=== PATIENT | female | born 1950 | race African-American/Black ===

== ENCOUNTER 2017-03-18 03:39 | Inpatient (IN) | payer OTHER ==
[2017-03-18] VITALS (8 sets, daily range): BP systolic 83–169; BP diastolic 54–93
[~2017-03-18] VITALS: Ht 165.1 cm; Wt 65.8 kg
[2017-03-18] MEDS ORDERED: AMLODIPINE BESY10 MG ORAL (04:28)
[2017-03-18] MEDS ORDERED: ASPIR 8181 MG ORAL (04:29)
[2017-03-18] MEDS ORDERED: TENORMIN50 MG ORAL (04:29)
[2017-03-18] MEDS ORDERED: BACLOFEN10 MG ORAL (04:29)
[2017-03-18] MEDS ORDERED: FOLIC ACID1 MG ORAL (04:30)
[2017-03-18] MEDS ORDERED: COLACE100 MG ORAL (04:30)
[2017-03-18] MEDS ORDERED: CRANBERRY450 M3 PO (04:30)
[2017-03-18] MEDS ORDERED: GABAPENTIN600 MG ORAL (04:33)
[2017-03-18] MEDS ORDERED: HUMULIN 70100 UNIT/2 SUBQ (04:33)
[2017-03-18] MEDS ORDERED: METFORMIN HCL500 M1 ORAL (04:33)
[2017-03-18] MEDS ORDERED: MIRALAX17 G2 ORAL (04:35)
[2017-03-18] MEDS ORDERED: NORCO 5-325 TA1 EACH ORAL (04:35)
[2017-03-18] MEDS ORDERED: MONTELUKAST SOD10 MG ORAL (04:35)
[2017-03-18 04:40] LABS: BASOPHILS % (AUTO) 0.8 % (0.0-2.0); EOSINOPHILS % (AUTO) 0.3 % (0.0-3.0); LYMPHOCYTES % (AUTO) 22.3 % (20.0-45.0); MEAN CORPUSCULAR HEMOGLOBIN 26.6 PG (27.0-31.0); MEAN CORPUSCULAR HGB CONC 31.2 G/DL (32.0-36.0); MEAN CORPUSCULAR VOLUME 85 FL (80-99); MEAN PLATELET VOLUME 8.9 FL (6.5-10.1); NEUTROPHILS % (AUTO) 73.7 % (45.0-75.0); PLATELET COUNT 287 K/UL (150-450); RED BLOOD COUNT 4.88 M/UL (4.20-5.40); RED CELL DISTRIBUTION WIDTH 13.4 % (11.6-14.8); WHITE BLOOD COUNT 12.1 K/UL (4.8-10.8)
[2017-03-18] MEDS ORDERED: Cefepime HCl 1 GM in D5W 55 ML IVPB ONE (04:45)
--- NOTE | 2017-03-18 04:49 | Emergency Room Report ---
History of Present Illness General Chief Complaint: Fever Source: Patient, Medical Record, EMS, PMD Present Illness HPI Is a 66-year-old female with multiple medical problem. 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 She presents with chief complaint of fever and cough. Onset yesterday. Is given Tylenol without reduction of her fever. Patient felt weak. Cough is nonproductive in nature. No nausea no vomiting. No chest pain. No other complaint. Allergies: Coded Allergies: PENICILLINS (Verified Allergy, Unknown, 03/18/17) Patient History Past Medical History: see triage record, old chart reviewed, HTN, CVA/TIA Past Surgical History: other Pertinent Family History: none Social History: Denies: smoking Now: No Immunizations: other Reviewed Nursing Documentation: PMH: Agreed, PSxH: Agreed Nursing Documentation-PMH Hx Hypertension: Yes Hx Diabetes: Yes Hx Cerebrovascular Accident: Yes - LEFT SIDE DEFICIT,left hemiparesis, hemiplegia Review of Systems Constitutional: Reports: fever Eye: Denies: blurred vision, eye pain ENT: Denies: ear pain, nose congestion, throat swelling Respiratory: Reports: cough, Denies: shortness of breath Cardiovascular: Denies: chest pain, palpitations Gastrointestinal: Denies: abdominal pain, diarrhea, nausea, vomiting Musculoskeletal: Denies: back pain, joint pain Skin: Denies: rash Neurological: Denies: headache, numbness Endocrine: Denies: increased thirst, increased urine Hematologic/Lymphatic: Denies: easy bruising All Other Systems: negative except mentioned in HPI Physical Exam Vital Signs Date Time Temp Pulse Resp B/P Pulse Ox O2 Delivery O2 Flow Rate FiO2 03/18/17 03:43 101.5 100 20 169/93 91 Nasal Cannula 2.0 vitals with fever and hypoxia Sp02 EP Interpretation: abnormal General Appearance: alert, mild distress, Chronically Ill Head: normocephalic, atraumatic Eyes: bilateral eye EOMI, bilateral eye PERRL ENT: hearing grossly normal, normal pharynx Neck: full range of motion, supple, no meningismus Respiratory: chest non-tender, rhonchi Cardiovascular #1: regular rate, rhythm, no murmur Gastrointestinal: normal bowel sounds, non tender, no mass, no organomegaly, no bruit, non-distended Musculoskeletal: back normal Neurologic: alert Psychiatric: mood/affect normal Skin: warm/dry Procedures Critical Care Time Critical Care Time Critical care is mandated in this patient who presented with sepsis from pneumonia. Patient require my urgent intervention to attenuate the risks of metabolic collapse which may lead to cardiovascular collapse and . Critical care time is 35 minutes excluding any reportable procedure. Critical care time included evaluation, multiple reevaluation, looking at old charts, interpreting laboratory and diagnostic data, discussing case with patient and family and consultants, and charting. Medical Decision Making Diagnostic Impression: Primary Impression: Sepsis Qualified Codes: A41.9 - Sepsis, unspecified organism Additional Impressions: Pneumonia Qualified Codes: J18.1 - Lobar pneumonia, unspecified organism UTI (urinary tract infection) Qualified Codes: N30.00 - Acute cystitis without hematuria ER Course Patient presents with fever and rest or distress. She has pneumonia and sepsis. She is more alert after IV fluid. Repeat lactic acid done. There is get any urine. Patient will be made to Dr. Woodson based on insurance. I informed primary care Dr. admission status. Lab Results Impression labs unremarkable EKG Diagnostic Results Rate: normal Rhythm: NSR ST Segments: no acute changes Rhythm Strip Diag. Results EP Interpretation: yes Rate: 100 Rhythm: NSR, no PVC's, no ectopy Chest X-Ray Diagnostic Results EP Interpretation: Yes Findings: no effusion, no pneumothorax, other - Left lower lobe infiltrate Number of Views: 1 Last Vital Signs Date Time Temp Pulse Resp B/P Pulse Ox O2 Delivery O2 Flow Rate FiO2 03/18/17 03:43 101.5 100 20 169/93 91 Nasal Cannula 2.0 Status: improved Disposition: ADMITTED INPATIENT Condition: Serious Referrals: Joe Reid MD (PCP) KARY ALMAZAN M.D. March 18, 2017 04:49
[2017-03-18] MEDS ORDERED: Cefepime 1gm vial ONE (04:51)
[2017-03-18 04:56] LABS: ALANINE AMINOTRANSFERASE 21 U/L (3-33); ALBUMIN/GLOBULIN RATIO 0.9 (1.0-2.7); ANION GAP 15 (5-15); ASPARTATE AMINO TRANSFERASE 43 U/L (5-40); CALCIUM 10.1 mg/dL (8.6-10.2); CARBON DIOXIDE 28 mEQ/L (20-30); CHLORIDE 97 mEQ/L (98-107); CREATININE 0.7 mg/dL (0.5-0.9); GLOMERULAR FILTRATION RATE > 60 mL/min (>60); HEMOLYSIS 15; SODIUM 140 mEQ/L (135-145)
[2017-03-18 04:56] LABS: APPEARANCE,URINE CLOUDY; KETONES,URINE NEGATIVE (NEGATIVE); LEUKOCYTE ESTERASE ,URINE 1+ (NEGATIVE); NITRITE,URINE NEGATIVE (NEGATIVE); PH,URINE 7 (4.5-8.0); PROTEIN,URINE NEGATIVE (NEGATIVE); UROBILINOGEN,URINE 1 MG/DL (0.0-1.0)
[2017-03-18 04:58] LABS: REFLEX LACTIC ACID YES OR NO YES; TROPONIN I < 0.30 ng/mL (<=0.30)
[2017-03-18 05:03] LABS: BACTERIA,URINE MANY /HPF; RBC,URINE 0-2 /HPF (0 - 2); SQUAMOUS EPITHELIAL CELL,UR MODERATE /LPF (NONE/OCC)
[2017-03-18 05:07] LABS: CKMB < 1.5 ng/mL (< 3.8)
[2017-03-18 05:17] LABS: BILIRUBIN,DIRECT 0.4 mg/dL (0.1-0.3)
[2017-03-18] MEDS ORDERED: Morphine Sulfate 2mg/ml Inj IVP ONE (06:30)
[2017-03-18] MEDS ORDERED: DuoNeb 0.5-3(2.5)mg/3ml neb HHN PRN (07:30)
[2017-03-18] MEDS ORDERED: Mylanta II UD 30ml ORAL PRN (07:30)
[2017-03-18] MEDS ORDERED: Promethazine/Codeine 5ml UD ORAL PRN (07:30)
[2017-03-18] MEDS ORDERED: Nitroglycerin Subl 0.4mg tab (Bottle Of 25) SL PRN (07:30)
[2017-03-18] MEDS ORDERED: Miralax 17gm pkt ORAL PRN (07:30)
[2017-03-18] MEDS: Docusate 100mg cap ORAL SCH ×2 (09:27→17:59)
[2017-03-18] MEDS: Heparin 5000 units/ml inj SUBQ SCH ×2 (09:31→21:11)
--- NOTE | 2017-03-18 09:43 | Diagnostic Imaging Report ---
Indication: Chest pain Technique: XRAY CHEST 1 V Comparison: None Findings: Cardiomediastinal silhouette is within normal limits. There is mild central pulmonary vascular congestion. There is no obvious consolidation or pleural effusion. Degenerative changes of the spine are seen. There is osteopenia. Degenerative changes are also seen of the right shoulder. Impression: Mild pulmonary vascular congestion. No obvious consolidation. Clinical correlation/followup recommended.
--- NOTE | 2017-03-18 14:21 | History and Physical ---
History of Present Illness General Date patient seen: March 18, 2017 Reason for Hospitalization: Fever Present Illness HPI 66-year-old female with hx of CVA, HTN, DM, alf resident DAVID with CC of fever and cough since yesterday. Her cough is nonproductive in nature. No nausea no vomiting. No chest pain. No other complaint. There is no obvious sign of sepsis, except for fever. Allergies: Coded Allergies: PENICILLINS (Verified Allergy, Unknown, 03/18/17) Medication History Scheduled Amlodipine Besylate* (Amlodipine Besylate*), 10 MG ORAL DAILY, (Reported) Aspirin* (Aspir 81*), 81 MG ORAL DAILY, (Reported) Atenolol* (Tenormin*), 50 MG ORAL BID, (Reported) Baclofen* (Baclofen*), 10 MG ORAL THREE TIMES A DAY, (Reported) Cranberry Fruit Concentrate (Cranberry), 450 MG PO DAILY, (Reported) Docusate Sodium* (Colace*), 100 MG ORAL TWICE A DAY, (Reported) Folic Acid* (Folic Acid*), 1 MG ORAL DAILY, (Reported) Gabapentin* (Gabapentin*), 600 MG ORAL EVERY 6 HOURS, (Reported) Metformin Hcl* (Metformin Hcl*), 500 MG ORAL BEFORE BREAKFAST, (Reported) Montelukast Sodium* (Montelukast Sodium*), 10 MG ORAL BEDTIME, (Reported) Polyethylene Glycol 3350* (Miralax*), 17 GM ORAL DAILY, (Reported) Scheduled PRN Hydrocodone Bit/Acetaminophen 5-325* ([place] 5-325*), 1 TAB ORAL Q12HR PRN for For Pain, (Reported) Miscellaneous Medications Hum Insulin Nph/Reg Insulin Hm (Humulin 70-30 Vial), 0 SUBQ, (Reported) Patient History Healthcare decision maker Resuscitation status Full Code Advanced Directive on File Past Medical/Surgical History Past Medical/Surgical History: (1) Family history of CVA (2) Diabetes mellitus (3) senior care resident Review of Systems All Other Systems: negative except mentioned in HPI Physical Exam General Appearance: WD/WN Lines, tubes and drains: peripheral HEENT: normocephalic, atraumatic Neck: non-tender, normal alignment Respiratory/Chest: chest wall non-tender, lungs clear Cardiovascular/Chest: normal peripheral pulses, normal rate Abdomen: normal bowel sounds, non tender Genitourinary/Rectal: normal genital exam, heme negative stool Extremities: normal range of motion Last 24 Hour Vital Signs Date Time Temp Pulse Resp B/P Pulse Ox O2 Delivery O2 Flow Rate FiO2 03/18/17 12:00 98.1 98 17 139/78 98 03/18/17 12:00 100 03/18/17 09:27 102 139/82 03/18/17 09:27 102 139/82 03/18/17 08:00 99.3 102 20 139/82 98 Nasal Cannula 2.0 03/18/17 08:00 104 03/18/17 07:58 98.3 03/18/17 07:55 101 18 116/68 100 Nasal Cannula 2.0 03/18/17 07:16 110 17 Nasal Cannula 2.0 03/18/17 07:13 98.3 110 17 130/64 100 Nasal Cannula 2.0 03/18/17 06:00 102.3 107 19 144/66 100 Nasal Cannula 2.0 03/18/17 03:50 101.5 115 20 169/93 98 Nasal Cannula 2.0 03/18/17 03:43 101.5 100 20 169/93 91 Nasal Cannula 2.0 Intake and Output 03/17/17 03/18/17 19:00 07:00 Intake Total 2200 ml Output Total 900 ml Balance 1300 ml Intake IV Total 2200 ml Output Urine Total 900 ml Laboratory Tests Test 03/18/17 04:00 03/18/17 04:30 03/18/17 04:45 03/18/17 04:50 Lactic Acid Level 1.90 mmol/L (0.66-2.22) 2.10 mmol/L (0.66-2.22) White Blood Count 12.1 K/UL (4.8-10.8) H Red Blood Count 4.88 M/UL (4.20-5.40) Hemoglobin 13.0 G/DL (12.0-16.0) Hematocrit 41.6 % (37.0-47.0) Mean Corpuscular Volume 85 FL (80-99) Mean Corpuscular Hemoglobin 26.6 PG (27.0-31.0) L Mean Corpuscular Hemoglobin Concent 31.2 G/DL (32.0-36.0) L Red Cell Distribution Width 13.4 % (11.6-14.8) Platelet Count 287 K/UL (150-450) Mean Platelet Volume 8.9 FL (6.5-10.1) Neutrophils (%) (Auto) 73.7 % (45.0-75.0) Lymphocytes (%) (Auto) 22.3 % (20.0-45.0) Monocytes (%) (Auto) 3.0 % (1.0-10.0) Eosinophils (%) (Auto) 0.3 % (0.0-3.0) Basophils (%) (Auto) 0.8 % (0.0-2.0) Sodium Level 140 mEQ/L (135-145) Potassium Level 5.0 mEQ/L (3.4-4.9) H Chloride Level 97 mEQ/L (98-107) L Carbon Dioxide Level 28 mEQ/L (20-30) Anion Gap 15 (5-15) Blood Urea Nitrogen 8 mg/dL (7-23) Creatinine 0.7 mg/dL (0.5-0.9) Estimat Glomerular Filtration Rate > 60 mL/min (>60) Glucose Level 130 mg/dL (74-106) H Calcium Level 10.1 mg/dL (8.6-10.2) Total Bilirubin 1.1 mg/dL (0.0-1.2) Direct Bilirubin 0.4 mg/dL (0.1-0.3) H Aspartate Amino Transf (AST/SGOT) 43 U/L (5-40) H Alanine Aminotransferase (ALT/SGPT) 21 U/L (3-33) Alkaline Phosphatase 121 U/L (35-104) H Total Creatine Kinase 46 U/L (26-140) Creatine Kinase MB < 1.5 ng/mL (< 3.8) Creatine Kinase MB Relative Index 3.2 Troponin I < 0.30 ng/mL (<=0.30) Total Protein 9.0 g/dL (6.6-8.7) H Albumin 4.3 g/dL (3.5-5.2) Globulin 4.7 g/dL Albumin/Globulin Ratio 0.9 (1.0-2.7) L Urine Legionella Antigen Pending Urine Color Pale yellow Urine Appearance Cloudy Urine pH 7 (4.5-8.0) Urine Specific [place] 1.010 (1.005-1.035) Urine Protein Negative (NEGATIVE) Urine Glucose (UA) Negative (NEGATIVE) Urine Ketones Negative (NEGATIVE) Urine Occult Blood Negative (NEGATIVE) Urine Nitrite Negative (NEGATIVE) Urine Bilirubin Negative (NEGATIVE) Urine Urobilinogen 1 MG/DL (0.0-1.0) H Urine Leukocyte Esterase 1+ (NEGATIVE) H Urine RBC 0-2 /HPF (0 - 2) Urine WBC 2-4 /HPF (0 - 2) Urine Squamous Epithelial Cells Moderate /LPF (NONE/OCC) H Urine Bacteria Many /HPF (NONE) H Height (Feet): 5 Height (Inches): 5.00 Weight (Pounds): 145 Medications Current Medications Medications (Trade) Dose Ordered Sig/Karla Route PRN Reason Start Time Stop Time Status Last Admin Dose Admin Acetaminophen (Tylenol) 650 mg Q4H PRN ORAL fever 03/18/17 07:30 04/17/17 07:29 Al Hydroxide/Mg Hydroxide (Mylanta II) 30 ml Q6H PRN ORAL dyspepsia 03/18/17 07:30 04/17/17 07:29 Albuterol/ Ipratropium (DuoNeb 0.5-3(2.5)mg/3ml) 3 ml Q4H PRN HHN Shortness of Breath 03/18/17 07:30 03/23/17 07:29 Amlodipine Besylate (Norvasc) 10 mg DAILY ORAL 03/18/17 09:00 04/17/17 08:59 03/18/17 09:27 Atenolol (Tenormin) 50 mg BID ORAL 03/18/17 09:00 04/17/17 08:59 03/18/17 09:27 Baclofen (Lioresal) 10 mg THREE TIMES A DAY ORAL 03/18/17 09:00 04/17/17 08:59 03/18/17 13:29 Docusate Sodium (Colace) 100 mg TWICE A DAY ORAL 03/18/17 09:00 04/17/17 08:59 03/18/17 09:27 Gabapentin (Neurontin) 600 mg EVERY 6 HOURS ORAL 03/18/17 12:00 04/17/17 11:59 03/18/17 12:02 Heparin Sodium (Porcine) (Heparin 5000 units/ml) 5,000 units EVERY 12 HOURS SUBQ 03/18/17 09:00 04/17/17 08:59 03/18/17 09:31 Nitroglycerin (Ntg) 0.4 mg Q5M PRN SL Prn Chest Pain 03/18/17 07:30 04/17/17 07:29 Ondansetron HCl (Zofran) 4 mg Q6H PRN IVP Nausea & Vomiting 03/18/17 07:30 04/17/17 07:29 Polyethylene Glycol (Miralax) 17 gm DAILYPRN PRN ORAL Constipation 03/18/17 07:30 04/17/17 07:29 Promethazine HCl/ Codeine (Phenergan with Codeine) 5 ml Q4H PRN ORAL For Cough 03/18/17 07:30 04/17/17 07:29 Sodium Chloride (Sodium Chloride 1000ml bag) 1,000 ml @ 300 mls/hr Q3H20M IV 03/18/17 07:00 04/17/17 06:59 03/18/17 14:00 Temazepam (Restoril) 15 mg HSPRN PRN ORAL Insomnia 03/18/17 07:30 03/25/17 07:29 Assessment/Plan Problem List: (1) Sepsis ICD Codes: A41.9 - Sepsis, unspecified organism SNOMED: 73916503 Qualifiers: Qualified Codes: A41.9 - Sepsis, unspecified organism (2) Diabetes mellitus ICD Codes: E11.9 - Type 2 diabetes mellitus without complications SNOMED: 46818168 (3) UTI (urinary tract infection) ICD Codes: N39.0 - Urinary tract infection, site not specified SNOMED: 57169567 Qualifiers: Qualified Codes: N30.00 - Acute cystitis without hematuria (4) senior care resident ICD Codes: Z59.3 - Problems related to living in residential institution SNOMED: 038452770 (5) Family history of CVA ICD Codes: Z82.3 - Family history of stroke SNOMED: 791328668 Assessment/Plan ye culture IV antibiotics sliding scale insulin coverage, dvt prophylaxis. KYLE MORALES March 18, 2017 14:21
[2017-03-18] MEDS: Norco 10mg/325mg tab ORAL PRN (14:53)
[2017-03-18] MEDS: Vancomycin 750mg/D5W 275ml IVPB SCH ×2 (15:53)
[2017-03-18] MEDS: NovoLOG Insulin Flexpen SUBQ SCH ×2 (16:42→21:39)
--- NOTE | 2017-03-18 18:48 | Consultation ---
Consult Note Consult Note ID CONSULT: Dict# [id number] Assessment/Plan ASSESSMENT: 66 y/o female with: // Febrile illness r/o HCAP, UTI, bacteremia, influenza, biliary - cultures pending - CXR: Mild pulmonary vascular congestion. No obvious consolidation. // Elevated LFTs, mild r/o hepatobiliary disease // Leukocytosis, mild // h/o CVA with aphasia, left hemiplegia // NH resident // PCN allergy - unable to qualify // Full Code PLAN: - continue empiric broad spectrum IV vancomycin, levaquin, aztreonam d# 1 - check influenza - check abdo US - f/u cultures, legionella UAg - monitor CBC, temperatures - monitor BMP - monitor CXR Thanks! Will follow SHELLY REDMOND March 18, 2017 18:48
[2017-03-18] MEDS: Aztreonam Inj 1 GM in NS 55 ML IVPB SCH (21:08)
[2017-03-18] MEDS ORDERED: Vancomycin 1 GM in D5W 275 ML IVPB SCH (22:00)
[2017-03-19] VITALS (7 sets, daily range): BP systolic 107–120; BP diastolic 62–72
--- NOTE | 2017-03-19 02:49 | Consultation ---
DATE OF CONSULTATION: 03/18/2017 INFECTIOUS DISEASE CONSULTATION REQUESTING PHYSICIAN: Michelet Woodson M.D. REASON FOR CONSULTATION: Fever. HISTORY OF PRESENT ILLNESS: This is a 66-year-old female, care home resident with history of stroke and left hemiplegia, admitted on 03/18/2017 with fever and cough. Chest x-ray shows mild pulmonary vascular congestion and no obvious consolidation. Urinalysis is essentially benign. Maximum temperature is 102.3 degrees and she has a white blood cell count of 12.1 with a normal differential. Cultures are pending. She has been started on empiric IV vancomycin, Levaquin, and aztreonam and Infectious Disease now consulted to assist in management. PAST MEDICAL HISTORY: 1. Stroke with dense left hemiplegia. 2. Hypertension. PAST SURGICAL HISTORY: None. MEDICATIONS: 1. Levaquin. 2. Aztreonam. 3. Vancomycin. 4. Insulin. 5. Gabapentin. 6. Norvasc. 7. Atenolol. 8. Baclofen. 9. Subcutaneous heparin. ALLERGIES: Penicillin. SOCIAL HISTORY: The patient is a resident of a care home. No active tobacco, alcohol, or illicit drug abuse. FAMILY HISTORY: Noncontributory. REVIEW OF SYSTEMS: Unable to obtain. PHYSICAL EXAMINATION: GENERAL: She is in no apparent distress, nontoxic appearing. VITAL SIGNS: Maximum temperature 102.3 degrees, blood pressure 137/73, heart rate in the 90s, respiratory rate 17, and saturation 99% on room air. HEENT: Poor dentition. CARDIOVASCULAR: Regular rate and rhythm. No murmurs. PULMONARY: Coarse breath sounds bilaterally. ABDOMEN: Bowel sounds present. Soft, nondistended, and nontender. EXTREMITIES: No edema. NEUROLOGICAL: Dense left hemiplegia and aphasia. LABORATORY DATA: White blood cell count 12.1 with normal differential, hemoglobin 13, and platelets 287,000. Sodium 140, potassium 5, chloride 97, bicarbonate 28, BUN 8, and creatinine 0.7. Lactic acid 1.9. AST 43, ALT 21, and alkaline phosphatase 121. Total bilirubin 1.1. Albumin 4.3. Troponin negative x1. MICROBIOLOGY: 1. 03/18/2017, blood culture pending. 2. 03/18/2017, urine culture pending. 3. 03/18/2017, sputum culture pending. IMAGIN03/18/2017, chest x-ray, mild pulmonary vascular congestion. No obvious consolidation. ASSESSMENT: 1. Febrile illness, rule out healthcare-associated pneumonia, urinary tract infection, bacteremia, influenza, or biliary source. Cultures are pending. Chest x-ray shows mild pulmonary vascular congestion. No obvious consolidation. 2. Elevated liver function tests, mild, rule out hepatobiliary disease. 3. Leukocytosis, mild. 4. History of stroke with aphasia and left hemiplegia. 5. senior care resident. 6. Penicillin allergy, unable to qualify. 7. Full Code. PLAN: 1. Continue empiric broad-spectrum IV vancomycin, Levaquin, and aztreonam day #1. 2. Check influenza screen. 3. Check abdominal ultrasound. 4. Follow up cultures Legionella urine antigen. 5. Monitor CBC and temperatures. 6. Monitor BMP. 7. Monitor chest x-ray. Thank you. We will follow. Dae Bullard M.D. DR: Jeferson JOB#: [id number] CC: Michelet Woodson M.D.; Fax#: [phone] Babcock M.D; Fax#: [phone]
[2017-03-19] MEDS: Vancomycin 750mg/D5W 275ml IVPB SCH ×4 (04:10→15:54)
[2017-03-19] MEDS: Norco 10mg/325mg tab ORAL PRN ×3 (06:00→18:45)
[2017-03-19] MEDS: NovoLOG Insulin Flexpen SUBQ SCH ×4 (06:01→20:53)
[2017-03-19] MEDS: Aztreonam Inj 1 GM in NS 55 ML IVPB SCH ×3 (06:55→20:41)
[2017-03-19] MEDS: Docusate 100mg cap ORAL SCH ×2 (08:43→17:42)
[2017-03-19] MEDS: Heparin 5000 units/ml inj SUBQ SCH ×2 (08:50→20:55)
[2017-03-19] MEDS ORDERED: Tubing IV Secondary IV ONE (09:21)
--- NOTE | 2017-03-19 11:58 | Diagnostic Imaging Report ---
Indication: Elevated liver function tests Technique: Ultrasound of the abdomen. Comparison: None Findings: Pancreas is not well-visualized. The liver is enlarged measuring 20.1 cm with coarsened echotexture. No gross focal liver lesions are identified. Visualized portions of the main portal vein and the hepatic veins are grossly unremarkable although incompletely evaluated. The gallbladder is absent. Common bile duct appears prominent measuring 1.3 cm. Bilateral kidneys demonstrate normal echogenicity. No focal renal lesions are seen. A right renal cortical cyst measures 4 mm. There is a small parapelvic cysts versus caliectasis of the right kidney. No echogenic renal stones are identified. The spleen is normal in size and echogenicity. The visualized aorta is normal in caliber. Visualized portions of the inferior vena cava are unremarkable. Impression: Cholecystectomy. Prominence of the common bile duct measuring 1.3 cm and clinical correlation recommended. Hepatomegaly with slight coarsened echotexture. Clinical correlation recommended for hepatocellular disease. Tiny cortical cyst of the right kidney. Small right renal parapelvic cyst versus caliectasis. Pancreas obscured. Further evaluation recommended as indicated.
[2017-03-19 15:20] LABS: BASOPHILS % (AUTO) 0.4 % (0.0-2.0); EOSINOPHILS % (AUTO) 1.1 % (0.0-3.0); LYMPHOCYTES % (AUTO) 28.7 % (20.0-45.0); MEAN CORPUSCULAR HEMOGLOBIN 26.4 PG (27.0-31.0); MEAN CORPUSCULAR HGB CONC 30.8 G/DL (32.0-36.0); MEAN CORPUSCULAR VOLUME 86 FL (80-99); MEAN PLATELET VOLUME 9.4 FL (6.5-10.1); MONOCYTES % (AUTO) 6.3 % (1.0-10.0); NEUTROPHILS % (AUTO) 63.5 % (45.0-75.0); PLATELET COUNT 237 K/UL (150-450); RED BLOOD COUNT 3.75 M/UL (4.20-5.40); RED CELL DISTRIBUTION WIDTH 13.3 % (11.6-14.8); WHITE BLOOD COUNT 9.4 K/UL (4.8-10.8)
[2017-03-19 15:42] LABS: ANION GAP 14 (5-15); CALCIUM 9.4 mg/dL (8.6-10.2); CARBON DIOXIDE 25 mEQ/L (20-30); CHLORIDE 100 mEQ/L (98-107); CREATININE 0.5 mg/dL (0.5-0.9); GLOMERULAR FILTRATION RATE > 60 mL/min (>60); HEMOLYSIS 3; PHOSPHORUS 2.5 mg/dL (2.5-4.8); POTASSIUM 3.8 mEQ/L (3.4-4.9); SODIUM 139 mEQ/L (135-145)
--- NOTE | 2017-03-19 16:39 | Pulmonology Progress Note ---
Assessment/Plan Problems: (1) Sepsis (2) Diabetes mellitus (3) UTI (urinary tract infection) (4) intermediate resident (5) Family history of CVA Assessment/Plan iv antibiotics afebrile check cultures tolerating diet check electrolytes med/surg Subjective ROS Limited/Unobtainable: No Allergies: Coded Allergies: PENICILLINS (Verified Allergy, Unknown, 03/18/17) Objective Last 24 Hour Vital Signs Date Time Temp Pulse Resp B/P Pulse Ox O2 Delivery O2 Flow Rate FiO2 03/19/17 16:00 97.2 76 18 116/66 Nasal Cannula 2.0 99 03/19/17 15:56 80 14 98 Nasal Cannula 2.0 28 03/19/17 15:45 76 14 98 Nasal Cannula 2.0 28 03/19/17 12:00 76 03/19/17 12:00 97.3 72 18 114/63 Nasal Cannula 2.0 99 03/19/17 10:15 77 111/68 03/19/17 10:12 77 111/68 03/19/17 08:43 72 107/72 03/19/17 08:00 97.5 72 18 107/72 Nasal Cannula 2.0 99 03/19/17 08:00 76 03/19/17 07:21 Nasal Cannula 2.0 28 03/19/17 07:21 95 Nasal Cannula 2.0 28 03/19/17 07:21 85 16 Nasal Cannula 2.0 28 03/19/17 06:56 97.9 03/19/17 04:00 97.9 84 16 120/71 97 Nasal Cannula 2.0 03/19/17 04:00 80 03/19/17 00:41 78 03/19/17 00:00 97.5 87 18 114/62 98 Nasal Cannula 2.0 03/18/17 20:27 86 03/18/17 20:00 99.0 82 20 83/54 95 Nasal Cannula 2.0 03/18/17 19:46 Nasal Cannula 2.0 28 03/18/17 19:45 85 16 Nasal Cannula 2.0 28 03/18/17 19:45 95 Nasal Cannula 2.0 28 03/18/17 17:59 98 137/73 03/18/17 17:11 98.8 98 17 137/73 99 Room Air Intake and Output 03/18/17 03/19/17 19:00 07:00 Intake Total 2727.416 ml Output Total 1200 ml 600 ml Balance 1527.416 ml -600 ml Intake Oral 560 ml IV Total 2167.416 ml Output Urine Total 1200 ml 600 ml General Appearance: WD/WN HEENT: normocephalic, atraumatic Respiratory/Chest: chest wall non-tender, lungs clear Breasts: no masses Cardiovascular: normal peripheral pulses, normal rate Abdomen: normal bowel sounds, soft, non tender Genitourinary: normal external genitalia Extremities: no clubbing Neurologic/Psychiatric: duplex trimmer II-XII grossly normal Lymphatic: no neck adenopathy Microbiology Date/Time Source Procedure Growth Status 03/18/17 04:15 Blood Blood Culture - Preliminary NO GROWTH AFTER 24 HOURS Resulted 03/18/17 04:00 Blood Blood Culture - Preliminary NO GROWTH AFTER 24 HOURS Resulted 03/18/17 22:45 Nasopharynx Influenza Types A,B Antigen (SORAIDA) - Final Complete 03/18/17 04:50 Urine,Clean Catch Urine Culture - Preliminary Gram Negative Thomas Mixed Gram Positive Organism Resulted Laboratory Tests 03/19/17 15:05: White Blood Count 9.4, Red Blood Count 3.75L, Hemoglobin 9.9L, Hematocrit 32.2L , Mean Corpuscular Volume 86, Mean Corpuscular Hemoglobin 26.4L, Mean Corpuscular Hemoglobin Concent 30.8L, Red Cell Distribution Width 13.3, Platelet Count 237, Mean Platelet Volume 9.4, Neutrophils (%) (Auto) 63.5, Lymphocytes (%) (Auto) 28.7, Monocytes (%) (Auto) 6.3, Eosinophils (%) (Auto) 1.1, Basophils (%) (Auto) 0.4, Sodium Level 139, Potassium Level 3.8, Chloride Level 100, Carbon Dioxide Level 25, Anion Gap 14, Blood Urea Nitrogen 12, Creatinine 0.5, Estimat Glomerular Filtration Rate > 60, Glucose Level 190H, Calcium Level 9.4, Phosphorus Level 2.5, Albumin 3.5 Current Medications Medications (Trade) Dose Ordered Sig/Karla Route PRN Reason Start Time Stop Time Status Last Admin Dose Admin Acetaminophen (Tylenol) 650 mg Q4H PRN ORAL fever 03/18/17 07:30 04/17/17 07:29 Acetaminophen/ Hydrocodone Bitart ([place] 10/325) 1 ea Q6H PRN ORAL For Pain 03/18/17 14:45 03/25/17 14:44 03/19/17 12:22 Al Hydroxide/Mg Hydroxide (Mylanta II) 30 ml Q6H PRN ORAL dyspepsia 03/18/17 07:30 04/17/17 07:29 Albuterol/ Ipratropium (DuoNeb 0.5-3(2.5)mg/3ml) 3 ml Q4H PRN HHN Shortness of Breath 03/18/17 07:30 03/23/17 07:29 03/19/17 15:40 Amlodipine Besylate (Norvasc) 10 mg DAILY ORAL 03/18/17 09:00 04/17/17 08:59 03/19/17 10:15 Atenolol (Tenormin) 50 mg BID ORAL 03/18/17 09:00 04/17/17 08:59 03/19/17 08:43 Aztreonam 1 gm/ Sodium Chloride 55 ml @ 110 mls/hr EVERY 8 HOURS IVPB 03/18/17 22:00 03/25/17 21:59 03/19/17 13:30 Baclofen (Lioresal) 10 mg THREE TIMES A DAY ORAL 03/18/17 09:00 04/17/17 08:59 03/19/17 12:22 Dextrose (Dextrose 50%) STAT PRN IV Hypoglycemia 03/18/17 14:45 04/17/17 14:44 Docusate Sodium (Colace) 100 mg TWICE A DAY ORAL 03/18/17 09:00 04/17/17 08:59 03/19/17 08:43 Gabapentin (Neurontin) 600 mg EVERY 6 HOURS ORAL 03/18/17 12:00 04/17/17 11:59 03/19/17 12:22 Heparin Sodium (Porcine) (Heparin 5000 units/ml) 5,000 units EVERY 12 HOURS SUBQ 03/18/17 09:00 04/17/17 08:59 03/19/17 08:50 Insulin Aspart (NovoLOG) BEFORE MEALS AND HS SUBQ 03/18/17 16:30 04/17/17 16:29 03/18/17 21:39 Levofloxacin (Levaquin) 100 ml @ 100 mls/hr Q24H IVPB 03/19/17 05:00 03/26/17 04:59 03/19/17 05:40 Nitroglycerin 0.4 mg 0.4 mg Q5M PRN SL Prn Chest Pain 03/18/17 07:30 04/17/17 07:29 Ondansetron HCl (Zofran) 4 mg Q6H PRN IVP Nausea & Vomiting 03/18/17 07:30 04/17/17 07:29 Polyethylene Glycol (Miralax) 17 gm DAILYPRN PRN ORAL Constipation 03/18/17 07:30 04/17/17 07:29 Promethazine HCl/ Codeine (Phenergan with Codeine) 5 ml Q4H PRN ORAL For Cough 03/18/17 07:30 04/17/17 07:29 Temazepam (Restoril) 15 mg HSPRN PRN ORAL Insomnia 03/18/17 07:30 03/25/17 07:29 03/18/17 21:35 Vancomycin HCl 1 ea 1 ea DAILY PRN MISC Per Rx Protocol 03/18/17 15:00 04/17/17 14:59 Vancomycin HCl/ Dextrose (Vancomycin/D5W) 275 ml @ 183.708 mls/hr Q12HR@0400,1600 IVPB 03/18/17 16:00 03/23/17 15:59 03/19/17 15:54 KYLE MORALES March 19, 2017 16:39
--- NOTE | 2017-03-19 17:35 | Infectious Diseases Prog Note ---
Assessment/Plan Assessment/Plan ASSESSMENT: 66 y/o female with: // Probable UTI - UCx >100K GNR, mixed GP - US: Tiny cortical cyst of the right kidney. Small right renal parapelvic cyst versus caliectasis. // Elevated LFTs, mild - US: Cholecystectomy. Prominence of the common bile duct measuring 1.3 cm. Hepatomegaly with slight coarsened echotexture. // CXR: Mild pulmonary vascular congestion. No obvious consolidation. // Negative influenza // Leukocytosis, mild - resolved // Fever - resolved // h/o CVA with aphasia, left hemiplegia // [place] resident // PCN allergy - unable to qualify // Full Code PLAN: - continue empiric IV vancomycin, aztreonam d# 2 pending C&S. DC levaquin d# 2 - f/u cultures, legionella UAg - monitor CBC, temperatures - monitor BMP - monitor CXR Subjective Allergies: Coded Allergies: PENICILLINS (Verified Allergy, Unknown, 03/18/17) Subjective fevers resolved cultures noted Objective Vital Signs Last 24 Hour Vital Signs Date Time Temp Pulse Resp B/P Pulse Ox O2 Delivery O2 Flow Rate FiO2 03/19/17 16:00 97.2 76 18 116/66 Nasal Cannula 2.0 99 03/19/17 16:00 88 03/19/17 15:56 80 14 98 Nasal Cannula 2.0 28 03/19/17 15:45 76 14 98 Nasal Cannula 2.0 28 03/19/17 12:00 76 03/19/17 12:00 97.3 72 18 114/63 Nasal Cannula 2.0 99 03/19/17 10:15 77 111/68 03/19/17 10:12 77 111/68 03/19/17 08:43 72 107/72 03/19/17 08:00 97.5 72 18 107/72 Nasal Cannula 2.0 99 03/19/17 08:00 76 03/19/17 07:21 Nasal Cannula 2.0 28 03/19/17 07:21 95 Nasal Cannula 2.0 28 03/19/17 07:21 85 16 Nasal Cannula 2.0 28 03/19/17 06:56 97.9 03/19/17 04:00 97.9 84 16 120/71 97 Nasal Cannula 2.0 03/19/17 04:00 80 03/19/17 00:41 78 03/19/17 00:00 97.5 87 18 114/62 98 Nasal Cannula 2.0 03/18/17 20:27 86 03/18/17 20:00 99.0 82 20 83/54 95 Nasal Cannula 2.0 03/18/17 19:46 Nasal Cannula 2.0 28 03/18/17 19:45 85 16 Nasal Cannula 2.0 28 03/18/17 19:45 95 Nasal Cannula 2.0 28 03/18/17 17:59 98 137/73 Height (Feet): 5 Height (Inches): 5.00 Weight (Pounds): 145 General Appearance: no acute distress Respiratory/Chest: no respiratory distress Cardiovascular: normal rate, regular rhythm Abdomen: normal bowel sounds, soft, non tender, non distended Microbiology Date/Time Source Procedure Growth Status 03/18/17 04:15 Blood Blood Culture - Preliminary NO GROWTH AFTER 24 HOURS Resulted 03/18/17 04:00 Blood Blood Culture - Preliminary NO GROWTH AFTER 24 HOURS Resulted 03/18/17 22:45 Nasopharynx Influenza Types A,B Antigen (SORAIDA) - Final Complete 03/18/17 04:50 Urine,Clean Catch Urine Culture - Preliminary Gram Negative Thomas Mixed Gram Positive Organism Resulted Laboratory Tests Test 03/19/17 15:05 White Blood Count 9.4 K/UL (4.8-10.8) Red Blood Count 3.75 M/UL (4.20-5.40) L Hemoglobin 9.9 G/DL (12.0-16.0) L Hematocrit 32.2 % (37.0-47.0) L Mean Corpuscular Volume 86 FL (80-99) Mean Corpuscular Hemoglobin 26.4 PG (27.0-31.0) L Mean Corpuscular Hemoglobin Concent 30.8 G/DL (32.0-36.0) L Red Cell Distribution Width 13.3 % (11.6-14.8) Platelet Count 237 K/UL (150-450) Mean Platelet Volume 9.4 FL (6.5-10.1) Neutrophils (%) (Auto) 63.5 % (45.0-75.0) Lymphocytes (%) (Auto) 28.7 % (20.0-45.0) Monocytes (%) (Auto) 6.3 % (1.0-10.0) Eosinophils (%) (Auto) 1.1 % (0.0-3.0) Basophils (%) (Auto) 0.4 % (0.0-2.0) Sodium Level 139 mEQ/L (135-145) Potassium Level 3.8 mEQ/L (3.4-4.9) Chloride Level 100 mEQ/L (98-107) Carbon Dioxide Level 25 mEQ/L (20-30) Anion Gap 14 (5-15) Blood Urea Nitrogen 12 mg/dL (7-23) Creatinine 0.5 mg/dL (0.5-0.9) Estimat Glomerular Filtration Rate > 60 mL/min (>60) Glucose Level 190 mg/dL (74-106) H Calcium Level 9.4 mg/dL (8.6-10.2) Phosphorus Level 2.5 mg/dL (2.5-4.8) Albumin 3.5 g/dL (3.5-5.2) Current Medications Medications (Trade) Dose Ordered Sig/Karla Route PRN Reason Start Time Stop Time Status Last Admin Dose Admin Acetaminophen (Tylenol) 650 mg Q4H PRN ORAL fever 03/18/17 07:30 04/17/17 07:29 Acetaminophen/ Hydrocodone Bitart ([place] 10/325) 1 ea Q6H PRN ORAL For Pain 03/18/17 14:45 03/25/17 14:44 03/19/17 12:22 Al Hydroxide/Mg Hydroxide (Mylanta II) 30 ml Q6H PRN ORAL dyspepsia 03/18/17 07:30 04/17/17 07:29 Albuterol/ Ipratropium (DuoNeb 0.5-3(2.5)mg/3ml) 3 ml Q4H PRN HHN Shortness of Breath 03/18/17 07:30 03/23/17 07:29 03/19/17 15:40 Amlodipine Besylate (Norvasc) 10 mg DAILY ORAL 03/18/17 09:00 04/17/17 08:59 03/19/17 10:15 Atenolol (Tenormin) 50 mg BID ORAL 03/18/17 09:00 04/17/17 08:59 03/19/17 08:43 Aztreonam 1 gm/ Sodium Chloride 55 ml @ 110 mls/hr EVERY 8 HOURS IVPB 03/18/17 22:00 03/25/17 21:59 03/19/17 13:30 Baclofen (Lioresal) 10 mg THREE TIMES A DAY ORAL 03/18/17 09:00 04/17/17 08:59 03/19/17 12:22 Dextrose (Dextrose 50%) STAT PRN IV Hypoglycemia 03/18/17 14:45 04/17/17 14:44 Docusate Sodium (Colace) 100 mg TWICE A DAY ORAL 03/18/17 09:00 04/17/17 08:59 03/19/17 08:43 Gabapentin (Neurontin) 600 mg EVERY 6 HOURS ORAL 03/18/17 12:00 04/17/17 11:59 03/19/17 12:22 Heparin Sodium (Porcine) (Heparin 5000 units/ml) 5,000 units EVERY 12 HOURS SUBQ 03/18/17 09:00 04/17/17 08:59 03/19/17 08:50 Insulin Aspart (NovoLOG) BEFORE MEALS AND HS SUBQ 03/18/17 16:30 04/17/17 16:29 03/19/17 16:55 Levofloxacin (Levaquin) 100 ml @ 100 mls/hr Q24H IVPB 03/19/17 05:00 03/26/17 04:59 03/19/17 05:40 Nitroglycerin 0.4 mg 0.4 mg Q5M PRN SL Prn Chest Pain 03/18/17 07:30 04/17/17 07:29 Ondansetron HCl (Zofran) 4 mg Q6H PRN IVP Nausea & Vomiting 03/18/17 07:30 04/17/17 07:29 Polyethylene Glycol (Miralax) 17 gm DAILYPRN PRN ORAL Constipation 03/18/17 07:30 04/17/17 07:29 Promethazine HCl/ Codeine (Phenergan with Codeine) 5 ml Q4H PRN ORAL For Cough 03/18/17 07:30 04/17/17 07:29 Temazepam (Restoril) 15 mg HSPRN PRN ORAL Insomnia 03/18/17 07:30 03/25/17 07:29 03/18/17 21:35 Vancomycin HCl 1 ea 1 ea DAILY PRN MISC Per Rx Protocol 03/18/17 15:00 04/17/17 14:59 Vancomycin HCl/ Dextrose (Vancomycin/D5W) 275 ml @ 183.708 mls/hr Q12HR@0400,1600 IVPB 03/18/17 16:00 03/23/17 15:59 03/19/17 15:54 SHELLY REDMOND March 19, 2017 17:35
[2017-03-19] MEDS ORDERED: Nitroglycerin Subl 0.4mg tab (Bottle Of 25) SL PRN (23:00)
[2017-03-19] MEDS ORDERED: Promethazine/Codeine 5ml UD ORAL PRN (23:30)
[2017-03-19] MEDS ORDERED: DuoNeb 0.5-3(2.5)mg/3ml neb HHN PRN (23:30)
[2017-03-20] VITALS: BP 133/79
[2017-03-20] MEDS ORDERED: Mylanta II UD 30ml ORAL PRN (01:30)
[2017-03-20 04:00] VITALS: BP 134/76
[2017-03-20] MEDS ORDERED: Vancomycin 750 MG in D5W 275 ML IVPB SCH (04:00)
[2017-03-20] MEDS: Norco 10mg/325mg tab ORAL PRN ×3 (04:22→23:33)
[2017-03-20] MEDS: Aztreonam Inj 1 GM in NS 55 ML IVPB SCH ×3 (06:30→21:55)
[2017-03-20] MEDS: NovoLOG Insulin Flexpen SUBQ SCH ×4 (06:33→20:39)
[2017-03-20 07:22] LABS: EOSINOPHILS % (AUTO) 1.2 % (0.0-3.0); LYMPHOCYTES % (AUTO) 35.8 % (20.0-45.0); MEAN CORPUSCULAR HEMOGLOBIN 27.8 PG (27.0-31.0); MEAN CORPUSCULAR HGB CONC 32.5 G/DL (32.0-36.0); MEAN CORPUSCULAR VOLUME 85 FL (80-99); MEAN PLATELET VOLUME 8.6 FL (6.5-10.1); MONOCYTES % (AUTO) 6.9 % (1.0-10.0); NEUTROPHILS % (AUTO) 55.1 % (45.0-75.0); PLATELET COUNT 219 K/UL (150-450); RED BLOOD COUNT 3.59 M/UL (4.20-5.40); RED CELL DISTRIBUTION WIDTH 13.5 % (11.6-14.8); WHITE BLOOD COUNT 6.6 K/UL (4.8-10.8)
[2017-03-20] MEDS ORDERED: Miralax 17gm pkt ORAL PRN (07:30)
[2017-03-20 07:35] LABS: ALANINE AMINOTRANSFERASE 15 U/L (3-33); ALBUMIN/GLOBULIN RATIO 0.8 (1.0-2.7); ANION GAP 17 (5-15); ASPARTATE AMINO TRANSFERASE 21 U/L (5-40); CALCIUM 9.5 mg/dL (8.6-10.2); CARBON DIOXIDE 23 mEQ/L (20-30); CHLORIDE 99 mEQ/L (98-107); CREATININE 0.6 mg/dL (0.5-0.9); GLOMERULAR FILTRATION RATE > 60 mL/min (>60); HEMOLYSIS 3; MAGNESIUM 1.7 mg/dL (1.7-2.5); PHOSPHORUS 3.1 mg/dL (2.5-4.8); POTASSIUM 3.9 mEQ/L (3.4-4.9); SODIUM 139 mEQ/L (135-145); TOTAL PROTEIN 7.4 g/dL (6.6-8.7)
[2017-03-20 08:00] VITALS: BP 142/79
[2017-03-20] MEDS: Docusate 100mg cap ORAL SCH ×2 (08:31→17:53)
[2017-03-20] MEDS: Heparin 5000 units/ml inj SUBQ SCH ×2 (08:32→20:40)
--- NOTE | 2017-03-20 09:32 | Infectious Diseases Prog Note ---
Assessment/Plan Assessment/Plan ASSESSMENT: 66 y/o female with: // Probable UTI - UCx >100K E coli - US: Tiny cortical cyst of the right kidney. Small right renal parapelvic cyst versus caliectasis. // Elevated LFTs, mild - US: Cholecystectomy. Prominence of the common bile duct measuring 1.3 cm. Hepatomegaly with slight coarsened echotexture. // CXR: Mild pulmonary vascular congestion. No obvious consolidation. // Negative influenza // Leukocytosis, mild - resolved // Fever - resolved // h/o CVA with aphasia, left hemiplegia // [place] resident // PCN allergy - unable to qualify // Full Code PLAN: - continue aztreonam d# 3 / , upon DC will change to bactrim DC to complete the course , DC IV vancomycin d# 3 ( 03/19 SP levaquin d# 2 ) - f/u cultures, legionella UAg - monitor CBC, temperatures - monitor BMP - monitor CXR Subjective Constitutional: Denies: anorexia, chills, drenching sweats, fatigue, fever, no symptoms, other Allergies: Coded Allergies: PENICILLINS (Verified Allergy, Unknown, 03/18/17) Objective Vital Signs Last 24 Hour Vital Signs Date Time Temp Pulse Resp B/P Pulse Ox O2 Delivery O2 Flow Rate FiO2 03/20/17 08:35 92 142/79 03/20/17 08:35 92 142/79 03/20/17 08:00 97.5 92 20 142/79 96 Room Air 03/20/17 04:00 99.7 90 16 134/76 95 Room Air 03/20/17 00:00 98.1 83 16 133/79 93 Room Air 03/19/17 20:00 97.2 83 16 107/70 95 Room Air 2.0 21 03/19/17 19:00 Room Air 21 03/19/17 19:00 95 Room Air 21 03/19/17 18:58 84 17 Room Air 21 03/19/17 17:42 88 116/66 03/19/17 16:00 97.2 76 18 116/66 Nasal Cannula 2.0 99 03/19/17 16:00 88 03/19/17 15:56 80 14 98 Nasal Cannula 2.0 28 03/19/17 15:45 76 14 98 Nasal Cannula 2.0 28 03/19/17 12:00 76 03/19/17 12:00 97.3 72 18 114/63 Nasal Cannula 2.0 99 03/19/17 10:15 77 111/68 03/19/17 10:12 77 111/68 Height (Feet): 5 Height (Inches): 5.00 Weight (Pounds): 145 HEENT: anicteric Respiratory/Chest: lungs clear Cardiovascular: regularly irregular Abdomen: soft, non tender Microbiology Date/Time Source Procedure Growth Status 03/18/17 04:15 Blood Blood Culture - Preliminary NO GROWTH AFTER 24 HOURS Resulted 03/18/17 04:00 Blood Blood Culture - Preliminary NO GROWTH AFTER 24 HOURS Resulted 03/18/17 22:45 Nasopharynx Influenza Types A,B Antigen (SORAIDA) - Final Complete 03/18/17 06:15 Nasal Nares MRSA Culture - Final Staphylococcus Aureus - Mrsa Complete 03/18/17 04:50 Urine,Clean Catch Urine Culture - Final Escherichia Coli Complete 03/18/17 06:15 Rectum VRE Culture - Preliminary Enterococcus Faecalis - Vre Resulted Laboratory Tests Test 03/19/17 15:05 03/20/17 06:10 White Blood Count 9.4 K/UL (4.8-10.8) 6.6 K/UL (4.8-10.8) Red Blood Count 3.75 M/UL (4.20-5.40) L 3.59 M/UL (4.20-5.40) L Hemoglobin 9.9 G/DL (12.0-16.0) L 10.0 G/DL (12.0-16.0) L Hematocrit 32.2 % (37.0-47.0) L 30.7 % (37.0-47.0) L Mean Corpuscular Volume 86 FL (80-99) 85 FL (80-99) Mean Corpuscular Hemoglobin 26.4 PG (27.0-31.0) L 27.8 PG (27.0-31.0) Mean Corpuscular Hemoglobin Concent 30.8 G/DL (32.0-36.0) L 32.5 G/DL (32.0-36.0) Red Cell Distribution Width 13.3 % (11.6-14.8) 13.5 % (11.6-14.8) Platelet Count 237 K/UL (150-450) 219 K/UL (150-450) Mean Platelet Volume 9.4 FL (6.5-10.1) 8.6 FL (6.5-10.1) Neutrophils (%) (Auto) 63.5 % (45.0-75.0) 55.1 % (45.0-75.0) Lymphocytes (%) (Auto) 28.7 % (20.0-45.0) 35.8 % (20.0-45.0) Monocytes (%) (Auto) 6.3 % (1.0-10.0) 6.9 % (1.0-10.0) Eosinophils (%) (Auto) 1.1 % (0.0-3.0) 1.2 % (0.0-3.0) Basophils (%) (Auto) 0.4 % (0.0-2.0) 1.0 % (0.0-2.0) Sodium Level 139 mEQ/L (135-145) 139 mEQ/L (135-145) Potassium Level 3.8 mEQ/L (3.4-4.9) 3.9 mEQ/L (3.4-4.9) Chloride Level 100 mEQ/L (98-107) 99 mEQ/L (98-107) Carbon Dioxide Level 25 mEQ/L (20-30) 23 mEQ/L (20-30) Anion Gap 14 (5-15) 17 (5-15) H Blood Urea Nitrogen 12 mg/dL (7-23) 11 mg/dL (7-23) Creatinine 0.5 mg/dL (0.5-0.9) 0.6 mg/dL (0.5-0.9) Estimat Glomerular Filtration Rate > 60 mL/min (>60) > 60 mL/min (>60) Glucose Level 190 mg/dL (74-106) H 194 mg/dL (74-106) H Calcium Level 9.4 mg/dL (8.6-10.2) 9.5 mg/dL (8.6-10.2) Phosphorus Level 2.5 mg/dL (2.5-4.8) 3.1 mg/dL (2.5-4.8) Albumin 3.5 g/dL (3.5-5.2) 3.3 g/dL (3.5-5.2) L Magnesium Level 1.7 mg/dL (1.7-2.5) Total Bilirubin 0.3 mg/dL (0.0-1.2) Aspartate Amino Transf (AST/SGOT) 21 U/L (5-40) Alanine Aminotransferase (ALT/SGPT) 15 U/L (3-33) Alkaline Phosphatase 92 U/L (35-104) Total Protein 7.4 g/dL (6.6-8.7) Globulin 4.1 g/dL Albumin/Globulin Ratio 0.8 (1.0-2.7) L Current Medications Medications (Trade) Dose Ordered Sig/Karla Route PRN Reason Start Time Stop Time Status Last Admin Dose Admin Acetaminophen (Tylenol) 650 mg Q4H PRN ORAL fever 03/19/17 23:30 04/18/17 23:29 Acetaminophen/ Hydrocodone Bitart ([place] 10/325) 1 ea Q6H PRN ORAL For Pain 03/20/17 02:45 03/27/17 02:44 03/20/17 04:22 Al Hydroxide/Mg Hydroxide (Mylanta II) 30 ml Q6H PRN ORAL dyspepsia 03/20/17 01:30 04/19/17 01:29 Albuterol/ Ipratropium (DuoNeb 0.5-3(2.5)mg/3ml) 3 ml Q4H PRN HHN Shortness of Breath 03/19/17 23:30 03/24/17 23:29 Amlodipine Besylate (Norvasc) 10 mg DAILY ORAL 03/20/17 09:00 04/19/17 08:59 03/20/17 08:35 Atenolol (Tenormin) 50 mg BID ORAL 03/20/17 09:00 04/19/17 08:59 03/20/17 08:35 Aztreonam 1 gm/ Sodium Chloride 55 ml @ 110 mls/hr EVERY 8 HOURS IVPB 03/20/17 06:00 03/27/17 05:59 03/20/17 06:30 Baclofen (Lioresal) 10 mg THREE TIMES A DAY ORAL 03/20/17 09:00 04/19/17 08:59 03/20/17 08:31 Dextrose (Dextrose 50%) STAT PRN IV Hypoglycemia 03/20/17 14:45 04/19/17 14:44 Docusate Sodium (Colace) 100 mg TWICE A DAY ORAL 03/20/17 09:00 04/19/17 08:59 03/20/17 08:31 Gabapentin (Neurontin) 600 mg EVERY 6 HOURS ORAL 03/20/17 00:00 04/19/17 00:00 03/20/17 06:33 Heparin Sodium (Porcine) (Heparin 5000 units/ml) 5,000 units EVERY 12 HOURS SUBQ 03/20/17 09:00 04/19/17 08:59 03/20/17 08:32 Insulin Aspart (NovoLOG) BEFORE MEALS AND HS SUBQ 03/20/17 06:30 04/19/17 06:29 03/20/17 06:33 Nitroglycerin (Ntg) 0.4 mg Q5M PRN SL Prn Chest Pain 03/19/17 23:00 04/18/17 22:59 Ondansetron HCl (Zofran) 4 mg Q6H PRN IVP Nausea & Vomiting 03/20/17 01:30 04/19/17 01:29 Polyethylene Glycol (Miralax) 17 gm DAILYPRN PRN ORAL Constipation 03/20/17 07:30 04/19/17 07:29 Promethazine HCl/ Codeine (Phenergan with Codeine) 5 ml Q4H PRN ORAL For Cough 03/19/17 23:30 04/18/17 23:29 Temazepam (Restoril) 15 mg HSPRN PRN ORAL Insomnia 03/20/17 07:30 03/27/17 07:29 Vancomycin HCl (Vanco rx to dose) 1 ea DAILY PRN MISC Per Rx Protocol 03/20/17 09:00 04/19/17 08:59 Vancomycin HCl/ Dextrose (Vancomycin/D5W) 275 ml @ 183.708 mls/hr Q12HR@0400,1600 IVPB 03/20/17 04:00 03/25/17 03:59 03/20/17 04:07 RANDI GIRON M.D. March 20, 2017 09:32
[2017-03-20 12:00] VITALS: BP 123/71
[2017-03-20 16:00] VITALS: BP 136/80
[2017-03-20] MEDS ORDERED: Morphine Sulfate 4mg/ml Inj IVP PRN ×2 (16:30)
[2017-03-20] MEDS ORDERED: Lidocaine 1% Plain 30 ml INJ ONE (17:00)
[2017-03-20] MEDS ORDERED: Heparin 2000 units/Ns 1000ml INJ ONE (17:00)
[2017-03-20] MEDS ORDERED: Sodium Bicarbonate 4% 2.4meq/5ml vial INJ ONE (17:00)
[2017-03-20] MEDS ORDERED: Norco 10mg/325mg tab ORAL PRN (19:00)
[2017-03-20] MEDS ORDERED: BACTRIM-DS1 EA ORAL (19:33)
--- NOTE | 2017-03-20 19:34 | Pulmonology Progress Note ---
Assessment/Plan Problems: (1) Sepsis (2) Diabetes mellitus (3) UTI (urinary tract infection) (4) [place] resident (5) Family history of CVA Assessment/Plan iv antibiotics afebrile check cultures tolerating diet check electrolytes med/surg Subjective ROS Limited/Unobtainable: No Constitutional: Reports: no symptoms HEENT: Repors: no symptoms Respiratory: Reports: no symptoms Allergies: Coded Allergies: PENICILLINS (Verified Allergy, Unknown, 03/18/17) Objective Last 24 Hour Vital Signs Date Time Temp Pulse Resp B/P Pulse Ox O2 Delivery O2 Flow Rate FiO2 03/20/17 17:53 94 136/80 03/20/17 16:00 97.2 94 19 136/80 94 Room Air 03/20/17 12:00 97.0 85 18 123/71 97 Room Air 03/20/17 08:35 92 142/79 03/20/17 08:35 92 142/79 03/20/17 08:00 97.5 92 20 142/79 96 Room Air 03/20/17 04:00 99.7 90 16 134/76 95 Room Air 03/20/17 00:00 98.1 83 16 133/79 93 Room Air 03/19/17 20:00 97.2 83 16 107/70 95 Room Air 2.0 21 Intake and Output 03/19/17 03/20/17 19:00 07:00 Intake Total 477.416 ml 120 ml Output Total 350 ml Balance 477.416 ml -230 ml Intake Oral 120 ml IV Total 477.416 ml Output Urine Total 350 ml Objective General Appearance: WD/WN Lines, tubes and drains: peripheral HEENT: normocephalic Neck: non-tender Respiratory/Chest: chest wall non-tender, lungs clear Cardiovascular/Chest: normal peripheral pulses, normal rate Abdomen: normal bowel sounds Genitourinary/Rectal: normal genital exam Extremities: normal range of motion Microbiology Date/Time Source Procedure Growth Status 03/18/17 04:15 Blood Blood Culture - Preliminary NO GROWTH AFTER 24 HOURS Resulted 03/18/17 04:00 Blood Blood Culture - Preliminary NO GROWTH AFTER 24 HOURS Resulted 03/18/17 22:45 Nasopharynx Influenza Types A,B Antigen (SORAIDA) - Final Complete 03/18/17 06:15 Nasal Nares MRSA Culture - Final Staphylococcus Aureus - Mrsa Complete 03/18/17 04:50 Urine,Clean Catch Urine Culture - Final Escherichia Coli Complete 03/18/17 06:15 Rectum VRE Culture - Final Enterococcus Faecalis - Vre Complete Laboratory Tests 03/20/17 06:10: White Blood Count 6.6, Red Blood Count 3.59L, Hemoglobin 10.0L, Hematocrit 30.7L , Mean Corpuscular Volume 85, Mean Corpuscular Hemoglobin 27.8, Mean Corpuscular Hemoglobin Concent 32.5, Red Cell Distribution Width 13.5, Platelet Count 219, Mean Platelet Volume 8.6, Neutrophils (%) (Auto) 55.1, Lymphocytes (% ) (Auto) 35.8, Monocytes (%) (Auto) 6.9, Eosinophils (%) (Auto) 1.2, Basophils ( %) (Auto) 1.0, Sodium Level 139, Potassium Level 3.9, Chloride Level 99, Carbon Dioxide Level 23, Anion Gap 17H, Blood Urea Nitrogen 11, Creatinine 0.6, Estimat Glomerular Filtration Rate > 60, Glucose Level 194H, Calcium Level 9.5, Phosphorus Level 3.1, Magnesium Level 1.7, Total Bilirubin 0.3, Aspartate Amino Transf (AST/SGOT) 21, Alanine Aminotransferase (ALT/SGPT) 15, Alkaline Phosphatase 92, Total Protein 7.4, Albumin 3.3L, Globulin 4.1, Albumin/Globulin Ratio 0.8L Current Medications Medications (Trade) Dose Ordered Sig/Karla Route PRN Reason Start Time Stop Time Status Last Admin Dose Admin Acetaminophen (Tylenol) 650 mg Q4H PRN ORAL fever 03/19/17 23:30 04/18/17 23:29 Acetaminophen/ Hydrocodone Bitart ([place] 10/325) 1 ea Q6H PRN ORAL Pain Scale (6-10) 03/20/17 19:00 03/27/17 18:59 Al Hydroxide/Mg Hydroxide (Mylanta II) 30 ml Q6H PRN ORAL dyspepsia 03/20/17 01:30 04/19/17 01:29 Albuterol/ Ipratropium (DuoNeb 0.5-3(2.5)mg/3ml) 3 ml Q4H PRN HHN Shortness of Breath 03/19/17 23:30 03/24/17 23:29 Amlodipine Besylate (Norvasc) 10 mg DAILY ORAL 03/20/17 09:00 04/19/17 08:59 03/20/17 08:35 Atenolol (Tenormin) 50 mg BID ORAL 03/20/17 09:00 04/19/17 08:59 03/20/17 17:53 Aztreonam/Sodium Chloride (Azactam/Sodium Chloride) 55 ml @ 110 mls/hr EVERY 8 HOURS IVPB 03/20/17 06:00 03/27/17 05:59 03/20/17 06:30 Baclofen (Lioresal) 10 mg THREE TIMES A DAY ORAL 03/20/17 09:00 04/19/17 08:59 03/20/17 17:53 Dextrose (Dextrose 50%) STAT PRN IV Hypoglycemia 03/20/17 14:45 04/19/17 14:44 Docusate Sodium (Colace) 100 mg TWICE A DAY ORAL 03/20/17 09:00 04/19/17 08:59 03/20/17 17:53 Gabapentin (Neurontin) 600 mg EVERY 6 HOURS ORAL 03/20/17 00:00 04/19/17 00:00 03/20/17 17:53 Heparin Sodium (Porcine) (Heparin 5000 units/ml) 5,000 units EVERY 12 HOURS SUBQ 03/20/17 09:00 04/19/17 08:59 03/20/17 08:32 Insulin Aspart (NovoLOG) BEFORE MEALS AND HS SUBQ 03/20/17 06:30 04/19/17 06:29 03/20/17 17:55 Morphine Sulfate (Morphine Sulfate) 4 mg Q4H PRN IVP Severe Pain (Pain Scale 7-10) 03/20/17 16:30 03/27/17 16:29 Nitroglycerin (Ntg) 0.4 mg Q5M PRN SL Prn Chest Pain 03/19/17 23:00 04/18/17 22:59 Ondansetron HCl (Zofran) 4 mg Q6H PRN IVP Nausea & Vomiting 03/20/17 01:30 04/19/17 01:29 Polyethylene Glycol (Miralax) 17 gm DAILYPRN PRN ORAL Constipation 03/20/17 07:30 04/19/17 07:29 Promethazine HCl/ Codeine (Phenergan with Codeine) 5 ml Q4H PRN ORAL For Cough 03/19/17 23:30 04/18/17 23:29 Temazepam (Restoril) 15 mg HSPRN PRN ORAL Insomnia 03/20/17 07:30 03/27/17 07:29 KYLE MORALES March 20, 2017 19:34
[2017-03-20 20:00] VITALS: BP 140/77
[2017-03-20] MEDS ORDERED: NS 275ml ONE (21:26)
[2017-03-20] MEDS ORDERED: Tubing IV Secondary IV ONE (21:26)
[2017-03-21] VITALS: BP 139/82
[2017-03-21 04:11] VITALS: BP 119/69
[2017-03-21] MEDS: Aztreonam Inj 1 GM in NS 55 ML IVPB SCH ×2 (05:20→13:40)
[2017-03-21] MEDS: NovoLOG Insulin Flexpen SUBQ SCH ×3 (06:46→16:37)
[2017-03-21] MEDS: Norco 10mg/325mg tab ORAL PRN ×2 (06:46→13:36)
[2017-03-21 08:24] VITALS: BP 137/79
[2017-03-21] MEDS: Heparin 5000 units/ml inj SUBQ SCH (10:02)
--- NOTE | 2017-03-21 10:10 | Infectious Diseases Prog Note ---
Assessment/Plan Assessment/Plan ASSESSMENT: 66 y/o female with: // Probable UTI - UCx >100K E coli - US: Tiny cortical cyst of the right kidney. Small right renal parapelvic cyst versus caliectasis. // Elevated LFTs, mild - US: Cholecystectomy. Prominence of the common bile duct measuring 1.3 cm. Hepatomegaly with slight coarsened echotexture. // CXR: Mild pulmonary vascular congestion. No obvious consolidation. // Negative influenza // Leukocytosis, mild - resolved // Fever - resolved // h/o CVA with aphasia, left hemiplegia // [place] resident // PCN allergy - unable to qualify // Full Code PLAN: - continue aztreonam d# 4 / 7 , upon DC will change to bactrim DC to complete the course ( 03/20 SP IV vancomycin d# 3 ) ( 03/19 SP levaquin d# 2 ) - f/u cultures, legionella UAg - monitor CBC, temperatures - monitor BMP - monitor CXR Subjective Constitutional: Denies: anorexia, chills, drenching sweats, fatigue, fever, no symptoms, other Allergies: Coded Allergies: PENICILLINS (Verified Allergy, Unknown, 03/18/17) Objective Vital Signs Last 24 Hour Vital Signs Date Time Temp Pulse Resp B/P Pulse Ox O2 Delivery O2 Flow Rate FiO2 03/21/17 08:24 97.7 85 20 137/79 94 Room Air 03/21/17 07:45 97.7 03/21/17 04:11 97.5 84 20 119/69 93 Room Air 03/21/17 00:00 98.2 82 18 139/82 96 Room Air 03/20/17 20:12 Room Air 21 03/20/17 20:12 96 Room Air 21 03/20/17 20:11 90 16 Room Air 21 03/20/17 20:00 97.9 89 20 140/77 96 Room Air 03/20/17 17:53 94 136/80 03/20/17 16:00 97.2 94 19 136/80 94 Room Air 03/20/17 12:00 97.0 85 18 123/71 97 Room Air Height (Feet): 5 Height (Inches): 5.00 Weight (Pounds): 145 Respiratory/Chest: lungs clear Cardiovascular: regular rhythm Abdomen: no organomegaly Microbiology Date/Time Source Procedure Growth Status 03/18/17 22:45 Nasopharynx Influenza Types A,B Antigen (SORAIDA) - Final Complete Current Medications Medications (Trade) Dose Ordered Sig/Karla Route PRN Reason Start Time Stop Time Status Last Admin Dose Admin Acetaminophen (Tylenol) 650 mg Q4H PRN ORAL fever 03/19/17 23:30 04/18/17 23:29 Acetaminophen/ Hydrocodone Bitart ([place] 10/325) 1 ea Q6H PRN ORAL Pain Scale (6-10) 03/20/17 19:00 03/27/17 18:59 03/21/17 06:46 Al Hydroxide/Mg Hydroxide (Mylanta II) 30 ml Q6H PRN ORAL dyspepsia 03/20/17 01:30 04/19/17 01:29 Albuterol/ Ipratropium (DuoNeb 0.5-3(2.5)mg/3ml) 3 ml Q4H PRN HHN Shortness of Breath 03/19/17 23:30 03/24/17 23:29 Amlodipine Besylate (Norvasc) 10 mg DAILY ORAL 03/20/17 09:00 04/19/17 08:59 03/20/17 08:35 Atenolol (Tenormin) 50 mg BID ORAL 03/20/17 09:00 04/19/17 08:59 03/20/17 17:53 Aztreonam/Sodium Chloride (Azactam/Sodium Chloride) 55 ml @ 110 mls/hr EVERY 8 HOURS IVPB 03/20/17 06:00 03/27/17 05:59 03/20/17 06:30 Baclofen (Lioresal) 10 mg THREE TIMES A DAY ORAL 03/20/17 09:00 04/19/17 08:59 03/20/17 17:53 Dextrose (Dextrose 50%) STAT PRN IV Hypoglycemia 03/20/17 14:45 04/19/17 14:44 Docusate Sodium (Colace) 100 mg TWICE A DAY ORAL 03/20/17 09:00 04/19/17 08:59 03/20/17 17:53 Gabapentin (Neurontin) 600 mg EVERY 6 HOURS ORAL 03/20/17 00:00 04/19/17 00:00 03/21/17 06:44 Heparin Sodium (Porcine) (Heparin 5000 units/ml) 5,000 units EVERY 12 HOURS SUBQ 03/20/17 09:00 04/19/17 08:59 03/21/17 10:02 Insulin Aspart (NovoLOG) BEFORE MEALS AND HS SUBQ 03/20/17 06:30 04/19/17 06:29 03/21/17 06:46 Morphine Sulfate (Morphine Sulfate) 4 mg Q4H PRN IVP Severe Pain (Pain Scale 7-10) 03/20/17 16:30 03/27/17 16:29 Nitroglycerin (Ntg) 0.4 mg Q5M PRN SL Prn Chest Pain 03/19/17 23:00 04/18/17 22:59 Ondansetron HCl (Zofran) 4 mg Q6H PRN IVP Nausea & Vomiting 03/20/17 01:30 04/19/17 01:29 Polyethylene Glycol (Miralax) 17 gm DAILYPRN PRN ORAL Constipation 03/20/17 07:30 04/19/17 07:29 Promethazine HCl/ Codeine (Phenergan with Codeine) 5 ml Q4H PRN ORAL For Cough 03/19/17 23:30 04/18/17 23:29 Temazepam (Restoril) 15 mg HSPRN PRN ORAL Insomnia 03/20/17 07:30 03/27/17 07:29 03/20/17 20:39 RANDI GIRON M.D. March 21, 2017 10:10
[2017-03-21] MEDS: Docusate 100mg cap ORAL SCH ×2 (10:11→17:37)
[2017-03-21 11:52] VITALS: BP 131/70
--- NOTE | 2017-03-21 15:06 | Pulmonology Progress Note ---
Assessment/Plan Problems: (1) Sepsis (2) Diabetes mellitus (3) UTI (urinary tract infection) (4) [facility] (5) Family history of CVA Assessment/Plan improving afebrile check cultures tolerating diet check electrolytes med/surg dc to nursign home today Subjective ROS Limited/Unobtainable: No Constitutional: Reports: no symptoms HEENT: Repors: no symptoms Respiratory: Reports: no symptoms Allergies: Coded Allergies: PENICILLINS (Verified Allergy, Unknown, 03/18/17) Objective Last 24 Hour Vital Signs Date Time Temp Pulse Resp B/P Pulse Ox O2 Delivery O2 Flow Rate FiO2 03/21/17 14:35 97.9 03/21/17 11:52 97.9 82 20 131/70 96 Room Air 03/21/17 10:15 81 136/78 03/21/17 10:14 81 136/78 03/21/17 08:25 96 Nasal Cannula 2.0 28 03/21/17 08:25 Nasal Cannula 2.0 28 03/21/17 08:25 86 16 Nasal Cannula 2.0 28 03/21/17 08:24 97.7 85 20 137/79 94 Room Air 03/21/17 04:11 97.5 84 20 119/69 93 Room Air 03/21/17 00:00 98.2 82 18 139/82 96 Room Air 03/20/17 20:12 Room Air 21 03/20/17 20:12 96 Room Air 21 03/20/17 20:11 90 16 Room Air 21 03/20/17 20:00 97.9 89 20 140/77 96 Room Air 03/20/17 17:53 94 136/80 03/20/17 16:00 97.2 94 19 136/80 94 Room Air Intake and Output 03/20/17 03/21/17 19:00 07:00 Intake Total 300 ml Output Total 1000 ml Balance -700 ml Intake Oral 300 ml Output Urine Total 1000 ml Objective General Appearance: WD/WN Lines, tubes and drains: peripheral HEENT: normocephalic Neck: non-tender Respiratory/Chest: chest wall non-tender, lungs clear Cardiovascular/Chest: normal peripheral pulses, normal rate Abdomen: normal bowel sounds Genitourinary/Rectal: normal genital exam Extremities: normal range of motion Microbiology Date/Time Source Procedure Growth Status 03/18/17 22:45 Nasopharynx Influenza Types A,B Antigen (SORAIDA) - Final Complete Current Medications Medications (Trade) Dose Ordered Sig/Karla Route PRN Reason Start Time Stop Time Status Last Admin Dose Admin Acetaminophen (Tylenol) 650 mg Q4H PRN ORAL fever 03/19/17 23:30 04/18/17 23:29 Acetaminophen/ Hydrocodone Bitart ([place] 10/325) 1 ea Q6H PRN ORAL Pain Scale (6-10) 03/20/17 19:00 03/27/17 18:59 03/21/17 13:36 Al Hydroxide/Mg Hydroxide (Mylanta II) 30 ml Q6H PRN ORAL dyspepsia 03/20/17 01:30 04/19/17 01:29 Albuterol/ Ipratropium (DuoNeb 0.5-3(2.5)mg/3ml) 3 ml Q4H PRN HHN Shortness of Breath 03/19/17 23:30 03/24/17 23:29 Amlodipine Besylate (Norvasc) 10 mg DAILY ORAL 03/20/17 09:00 04/19/17 08:59 03/21/17 10:14 Atenolol (Tenormin) 50 mg BID ORAL 03/20/17 09:00 04/19/17 08:59 03/21/17 10:15 Aztreonam/Sodium Chloride (Azactam/Sodium Chloride) 55 ml @ 110 mls/hr EVERY 8 HOURS IVPB 03/20/17 06:00 03/27/17 05:59 03/20/17 06:30 Baclofen (Lioresal) 10 mg THREE TIMES A DAY ORAL 03/20/17 09:00 04/19/17 08:59 03/21/17 13:36 Dextrose (Dextrose 50%) STAT PRN IV Hypoglycemia 03/20/17 14:45 04/19/17 14:44 Docusate Sodium (Colace) 100 mg TWICE A DAY ORAL 03/20/17 09:00 04/19/17 08:59 03/21/17 10:11 Gabapentin (Neurontin) 600 mg EVERY 6 HOURS ORAL 03/20/17 00:00 04/19/17 00:00 03/21/17 11:58 Heparin Sodium (Porcine) (Heparin 5000 units/ml) 5,000 units EVERY 12 HOURS SUBQ 03/20/17 09:00 04/19/17 08:59 03/21/17 10:02 Insulin Aspart (NovoLOG) BEFORE MEALS AND HS SUBQ 03/20/17 06:30 04/19/17 06:29 03/21/17 12:20 Morphine Sulfate (Morphine Sulfate) 4 mg Q4H PRN IVP Severe Pain (Pain Scale 7-10) 03/20/17 16:30 03/27/17 16:29 Nitroglycerin (Ntg) 0.4 mg Q5M PRN SL Prn Chest Pain 03/19/17 23:00 04/18/17 22:59 Ondansetron HCl (Zofran) 4 mg Q6H PRN IVP Nausea & Vomiting 03/20/17 01:30 04/19/17 01:29 Polyethylene Glycol (Miralax) 17 gm DAILYPRN PRN ORAL Constipation 03/20/17 07:30 04/19/17 07:29 Promethazine HCl/ Codeine (Phenergan with Codeine) 5 ml Q4H PRN ORAL For Cough 03/19/17 23:30 04/18/17 23:29 Temazepam (Restoril) 15 mg HSPRN PRN ORAL Insomnia 03/20/17 07:30 03/27/17 07:29 03/20/17 20:39 KYLE MORALES March 21, 2017 15:05
[2017-03-21 15:42] VITALS: BP 121/77
[2017-03-21 17:37] VITALS: BP 121/77
--- NOTE | 2017-03-22 19:18 | Discharge Summary ---
Discharge Summary Hospital Course Date of Admission March 18, 2017 at 05:50 Date of Discharge March 21, 2017 at 19:45 Admitting Diagnosis sepsis,pneumonia HPI Giuliana Del Real is a 66 year old female who was admitted on March 18, 2017 at 05:50 for Sepsis Pneumonia Hospital Course [id number] Discharge Discharge Disposition Patient was discharged to SNF/Subacute Facility(03) Discharge Diagnoses: April Keane NP March 22, 2017 19:17
--- NOTE | 2017-03-23 04:41 | Discharge Summary 2 SIG ---
DATE OF ADMISSION: 03/18/2017 DATE OF DISCHARGE: 03/21/2017 CONSULTANTS: Paolo Mancini M.D. BRIEF HOSPITAL COURSE: The patient is a 66-year-old female with history of CVA, hypertension, and diabetes mellitus, who came from alf, was brought in by ambulance due to fever and cough, which is nonproductive in nature. No nausea. No vomiting. On evaluation at ED, the patient was febrile with a temperature of 101.5 degrees. Laboratories showed leukocytosis. Lactic acid was 2. The patient was admitted for sepsis, was pancultured, and was given IV antibiotics. Infectious Disease specialist was consulted. T-max was 102.3 degrees. Chest x-ray showed mild pulmonary congestion with no obvious consolidation. She was given IV vancomycin, Levaquin, and aztreonam. Influenza screen was negative. Urine culture showed growth of E. coli. She had elevated liver function tests. Abdominal ultrasound done showed a cortical cyst on the right kidney, evidence of prior cholecystectomy, hepatomegaly, and prominent common bile duct. Vancomycin and Levaquin were discontinued. Legionella urine antigen was negative. The patient had been afebrile and was tolerating diet. The patient was discharged to alf facility to continue Bactrim for three more days. FINAL DIAGNOSES: 1. Sepsis due to probable urinary tract infection with Escherichia coli. 2. Elevated liver transaminases. 3. 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 4. Diabetes mellitus. 5. [facility] resident. Michelet Woodson M.D. I have been assigned to dictate discharge summary on this account and I was not involved in the patient's management. April Keane N.P. DR: BRIGITTE JOB#: [id number] CC:
== END 2017-03-21 19:45 | DRG 720 ==
LOC: EDBD 03:39 → EMR 03:51 → EDBEDREQSVC 05:28 → EDBEDREQ 05:28 → 2E 05:50 → EDBEDREQ 06:12 → 3E 03-19 22:52 → 4E 03-20 10:19
DX: A41.9 Sepsis, unspecified organism (principal); N39.0 Urinary tract infection, site not specified; I69.354 Hemiplegia and hemiparesis following cerebral infarction affecting left non-dominant side; I10 Essential (primary) hypertension; E11.9 Type 2 diabetes mellitus without complications; B96.20 Unspecified Escherichia coli [E. coli] as the cause of diseases classified elsewhere; I69.320 Aphasia following cerebral infarction; Z88.0 Allergy status to penicillin; Z79.4 Long term (current) use of insulin
CPT/HCPCS: 36415; 71010; 76700; 80053; 80069; 81003; 82164; 82248; 82550; 82553; 82962; 83605; 83735; 84100; 84484; 85025; 86710; 87040; 87081; 87086; 87181; 93005; 94644; 94664; 94760; J1815; J7620